=== PATIENT | female | born 1980 | race Hispanic/Latino ===

== ENCOUNTER 2022-02-10 20:30 | Emergency (ER) | payer OTHER ==
[~2022-02-10] VITALS: Ht 149.9 cm; Wt 74.8 kg
[2022-02-10] MEDS ORDERED: ONDANSETRON HCL 4 MG ORAL DISINTEGRATING TAB ONE (21:37)
[2022-02-10] MEDS ORDERED: ACETAMINOPHEN 325 MG TAB ONE (21:37)
[2022-02-10] MEDS ORDERED: ONDANSETRON HCL 4 MG ORAL DISINTEGRATING TAB PO ONE (21:45)
[2022-02-10] MEDS ORDERED: ACETAMINOPHEN 325 MG TAB PO ONE (21:45)
[2022-02-10 22:08] LABS: STREPTOCOCCUS GRP A ANTIGEN NEGATIVE (NEGATIVE)
[2022-02-10 22:20] LABS: CLARITY,URINE CLOUDY (CLEAR); COLOR,URINE YELLOW (YELLOW)
[2022-02-10 22:21] LABS: BACTERIA,URINE MODERATE /HPF; KETONES,URINE >=160 (NEGATIVE); LEUKOCYTE ESTERASE ,URINE TRACE (NEGATIVE); NITRITE,URINE NEGATIVE (NEGATIVE); PROTEIN,URINE DIPSTICK TRACE (NEGATIVE); RBC,URINE 0-5 /HPF (0-5); URINE UROBILINOGEN 0.2 mg/dL (0.2 - 1)
[2022-02-10 22:26] LABS: INFLUENZAE A&B ANTIGEN (RAPID) NEGATIVE (NEGATIVE); RESPIRATORY SYNC. VIRUS NEGATIVE (NEGATIVE)
[2022-02-10] MEDS ORDERED: CEPHALEXIN500 MG PO (22:46)
== END 2022-02-10 23:07 | disposition home or self-care (01) ==
LOC: ER 20:39
DX: R50.9 Fever, unspecified (principal); R09.89 Other specified symptoms and signs involving the circulatory and respiratory systems; N39.0 Urinary tract infection, site not specified; Z20.822 Contact with and (suspected) exposure to COVID-19; E11.9 Type 2 diabetes mellitus without complications
CPT/HCPCS: 0223U; 36415; 81001; 83518; 87070; 87400; 87420; 99283; Q0162